=== PATIENT | female | born 1980 ===

== ENCOUNTER → 2023-01-15 14:29 | Outpatient (BNVA) | payer BC, SELFPAY | PROVIDERS: PCP Physician Assistant; Visit Provider Psychiatry & Neurology Neurology ==

== ENCOUNTER 2023-09-03 15:27 | Outpatient (AMB) | payer BC, SELFPAY ==
--- NOTE | 2023-09-03 15:33 | A.OFFVIS_ITS ---
Intake Vital Signs 09/03/23 15:34 Height 5 ft 6 in Weight 123 lb BMI 19.9 BP 104/62 Blood Pressure Location Rt brachial Position Sitting Respiration 17 Pulse 76 Pulse Source Pulse Oximeter Pulse Oximetry (%) 98 Oxygen Delivery Method Room Air Intake Visit Reasons: 6m follow up MS-LVM Intake Note: Pt presents for 7 month follow up for cervicalgia. Pt reports she feels better. 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 Her headaches resolved and neck pain resolved with PT. she takes magnesium infrequently Previous history- The first episode was in Jun 2021 she had a sharp sensation in the left side of her head and blurry vision in her left eye. It lasted about 20 min.she had weakness in her left leg and left Ue weakness for a few days - she went to ER , CT head was negative. She had a second episode 4mths ago - she had pain in the left side of the body and pressure in forehead , she felt like she was swollen, tingling in her left leg. MRI brain - MRI C spine were normal. In between these episodes she has milder symptoms like tingling which was related to stress. she reports frequent headaches - frontal head pressure in the past 9 mths . No nausea, photophobia, phonophobia , diplopia , vertigo . she says her stress had increased since the pandemic due to work related stress. 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 she was also going through IVF which she has put a hold on. [facility] Medical History Restless legs syndrome (RLS) Insomnia Anxiety Social History Alcohol intake: current Patient Tobacco Use Status: Never used Tobacco Physical Exam Vital Signs: Last Vital Signs Pulse 76 09/03/23 15:34 Resp 17 09/03/23 15:34 BP 104/62 09/03/23 15:34 Pulse Ox 98 09/03/23 15:34 Oxygen Delivery Method Room Air 09/03/23 15:34 BMI result Body Mass Index 19.9 Const General: cooperative, healthy appearing and comfortable Nutritional Appearance: average body habitus Orientation/consciousness: patient oriented x3 Limitations: no limitations Neuro General: patient oriented x3, gait normal, tone normal, moves all extremities and no focal motor deficits Gait exam (Neuro): Normal gait present Assessment & Plan Assessment & Plan (1) Cervicalgia: Code(s): M54.2 - Cervicalgia (2) Headache: Comment: tension headache Code(s): R51.9 - Headache, unspecified Plan The episodes are likely related to cervical muscle spasm , ? migraine , anxiety etc. Continue magnesium 250mg qhs for muscle relaxation Continue neck exercises. Coding Level of Care Code Est Pt Level 3 (33977) Diagnoses Cervicalgia M54.2 Headache R51.9
[2023-09-03 15:34] VITALS: BP 104/62; PULSE 76; RESP 17; O2SAT 98; BMI 19.9
== END 2023-09-03 15:55 | disposition home or self-care (01) ==
PROVIDERS: PCP Physician Assistant; Visit Provider Psychiatry & Neurology Neurology
DX: M54.2 Cervicalgia (principal); R51.9 Headache, unspecified
CPT/HCPCS: 99213

== ENCOUNTER → 2023-09-03 15:27 | Outpatient (BNVA) | payer BC, SELFPAY | PROVIDERS: PCP Physician Assistant; Visit Provider Psychiatry & Neurology Neurology | DX: M54.2 Cervicalgia (principal); R51.9 Headache, unspecified ==